=== PATIENT | female | born 1955 | race Caucasian/White ===

== ENCOUNTER 2023-12-09 10:52 | Emergency (ER) | payer OTHER ==
[2023-12-09 11:28] VITALS: BP 129/77; PULSE 80; RESP 18; TEMP 97.7; BMI 25.4
[2023-12-09] MEDS: IBUPROFEN 600 MG TABLET (FP) PO ONE (11:41)
[2023-12-09] MEDS ORDERED: IBUPROFEN 600 MG TABLET (FP) PO ONE (11:42)
== END 2023-12-09 12:42 | disposition home or self-care (01) ==
LOC: JERFT 10:52
DX: M54.50 Low back pain, unspecified (principal); M25.511 Pain in right shoulder; V43.62XA Car passenger injured in collision with other type car in traffic accident, initial encounter
CPT/HCPCS: 99285-25